=== PATIENT | female | born 1940 | race Caucasian/White ===

== ENCOUNTER 2017-05-29 10:00 | Inpatient (IN) | payer MEDICARE, OTHER ==
[~2017-05-29] VITALS: Ht 157.5 cm; Wt 96.3 kg
[2017-06-20] MEDS ORDERED: LACTATED RINGERS 1,000 ML IV SCH ×2 (06:09→06:30)
[2017-06-20 06:12] VITALS: BP 147/86
[2017-06-20] MEDS ORDERED: ASPI-496 PO (06:25)
[2017-06-20] MEDS ORDERED: CITA10TA4 PO (06:25)
[2017-06-20] MEDS ORDERED: AMLO2.5T PO (06:25)
[2017-06-20] MEDS ORDERED: RANI150T4 PO (06:25)
[2017-06-20] MEDS ORDERED: LEVO50TA5 PO (06:25)
[2017-06-20] MEDS ORDERED: MELO15TA24 PO (06:25)
[2017-06-20] MEDS ORDERED: HYDR-3240 PO (06:35)
[2017-06-20] MEDS ORDERED: EPINEPHRINE 1 MG/ML, 1ML ONE (06:44)
[2017-06-20] MEDS ORDERED: VANCOMYCIN 1,000 MG ONE (06:44)
[2017-06-20] MEDS ORDERED: BUPIVACAINE/PF 0.5% ONE (06:44)
[2017-06-20] MEDS ORDERED: BACITRACIN 50,000 UNIT ONE (06:44)
[2017-06-20] MEDS ORDERED: THROMBIN 5,000 UNIT VIAL TP ONE (06:44)
[2017-06-20] MEDS ORDERED: FENTANYL PF 100 MCG/2ML ONE ×2 (07:03→11:06)
[2017-06-20] MEDS ORDERED: MIDAZOLAM 1 MG/ML, 2ML ONE (07:03)
[2017-06-20] MEDS ORDERED: REMIFENTANIL 2 MG ONE ×2 (07:04→09:44)
[2017-06-20] MEDS ORDERED: KETAMINE 10 MG/ML, 20ML ONE (07:04)
[2017-06-20] MEDS ORDERED: ONDANSETRON 2MG/ML, 2ML IVPush PRN (08:00)
[2017-06-20] MEDS ORDERED: MEPERIDINE/PF 25MG/0.5ML IVPush PRN (08:00)
[2017-06-20] MEDS ORDERED: PROMETHAZINE 25 MG/ML, 1ML IV PRN (08:00)
[2017-06-20] MEDS ORDERED: hydrALAzine 20 MG/ML, 1ML IV PRN (08:00)
[2017-06-20] MEDS ORDERED: ACETAMINOPHEN 325 MG TABLET PO PRN (08:00)
[2017-06-20] MEDS ORDERED: OXYcodone 5 MG/5 ML ORAL.SOL UDC PO PRN (08:00)
[2017-06-20] MEDS ORDERED: HYDROmorphone 1 MG/ML, 1ML IV PRN (08:00)
[2017-06-20] MEDS ORDERED: LABETALOL 5MG/ML, 20ML IV PRN (08:00)
[2017-06-20] MEDS ORDERED: DEXAMETHASONE 4 MG/ML, 1ML ONE (08:26)
[2017-06-20] MEDS ORDERED: PROPOFOL 10 MG/ML, 50ML ONE (08:26)
[2017-06-20] MEDS ORDERED: CEFAZOLIN 1,000 MG ONE (08:26)
[2017-06-20] MEDS ORDERED: ONDANSETRON 2MG/ML, 2ML ONE (08:26)
[2017-06-20] MEDS ORDERED: ROCURONIUM 10 MG/ML ONE (08:26)
[2017-06-20] MEDS ORDERED: PHENYLEPHRINE 10 MG/ML ONE (08:26)
[2017-06-20] MEDS ORDERED: PROPOFOL 10 MG/ML, 20ML ONE (08:26)
[2017-06-20] MEDS ORDERED: BUPIVACAINE/PF 0.5% INFIL ONE (09:09)
[2017-06-20] MEDS ORDERED: EPINEPHRINE 1 MG/ML, 1ML INFIL ONE (09:10)
[2017-06-20] MEDS ORDERED: HYDROmorphone 1 MG/ML, 1ML ONE (10:31)
[2017-06-20] MEDS ORDERED: ACETAMINOPHEN 650 MG/20.3 ML UDC ONE (11:07)
[2017-06-20] MEDS ORDERED: OXYcodone 5 MG/5 ML ORAL.SOL UDC ONE (11:07)
[2017-06-20] MEDS: FENTANYL PF 100 MCG/2ML IV PRN ×2 (11:19→11:28)
[2017-06-20] MEDS ORDERED: HYDROmorphone PCA 30 MG/30 ML ONE (11:41)
[2017-06-20] MEDS ORDERED: HYDROmorphone PCA 30 MG/30 ML IV PRN (12:00)
[2017-06-20 12:33] VITALS: BP 128/68
[2017-06-20] MEDS ORDERED: DIPHENHYDRAMINE 25 MG CAPSULE PO PRN (13:30)
[2017-06-20] MEDS ORDERED: BISACODYL 10 MG SUPP PR PRN (13:30)
[2017-06-20] MEDS ORDERED: ONDANSETRON 2MG/ML, 2ML IV PRN (13:30)
[2017-06-20] MEDS: NS + 20MEQ KCL 1,000 ML IV SCH (13:30)
[2017-06-20] MEDS ORDERED: TIZANIDINE 4MG TABLET PO PRN (13:30)
[2017-06-20] MEDS ORDERED: MAGNESIUM HYDROXIDE 8%, 30ML UDC PO PRN (13:30)
[2017-06-20] MEDS ORDERED: HYDROcodone/APAP 5/325 TABLET PO PRN (13:30)
[2017-06-20] MEDS ORDERED: morphine SULFATE 10 MG/ML, 1ML IV PRN (13:30)
[2017-06-20] MEDS ORDERED: DIAZEPAM 5 MG/ML, 2ML IV PRN (13:30)
[2017-06-20] MEDS ORDERED: DIPHENHYDRAMINE 50 MG/ML, 1ML IVPush PRN (13:30)
[2017-06-20] MEDS ORDERED: DIAZEPAM 5 MG TABLET PO PRN (13:30)
[2017-06-20] MEDS: CEFAZOLIN PMX 1GM/50ML 50 ML IVPB SCH (16:45)
[2017-06-20 20:15] VITALS: BP 120/72
[2017-06-21 00:40] VITALS: BP 102/66
[2017-06-21] MEDS: CEFAZOLIN PMX 1GM/50ML 50 ML IVPB SCH (01:23)
[2017-06-21 03:37] VITALS: BP 102/62
[2017-06-21] MEDS: NS + 20MEQ KCL 1,000 ML IV SCH ×3 (03:43→21:48)
[2017-06-21 05:07] LABS: HEMATOCRIT 31.6 % (34.6-47.8); HEMOGLOBIN 10.6 g/dL (11.7-16.4); WHITE BLOOD COUNT 9.1 x10^3/uL (3.4-10)
[2017-06-21 05:17] LABS: BLOOD UREA NITROGEN 17 mg/dL (7-18)
[2017-06-21] MEDS: LEVOTHYROXINE 50 MCG TABLET PO SCH (06:37)
[2017-06-21 07:17] VITALS: BP 108/59
[2017-06-21] MEDS: AMLODIPINE 2.5 MG TABLET PO SCH (09:00)
[2017-06-21] MEDS: FAMOTIDINE 20 MG TABLET PO SCH (09:52)
[2017-06-21] MEDS: CITALOPRAM 10 MG TABLET PO SCH (09:52)
[2017-06-21] MEDS: SENNA/DOCUSATE TABLET PO SCH (09:52)
[2017-06-21] MEDS: OXYcodone/APAP 5/325MG TABLET PO PRN ×4 (11:34→22:59)
[2017-06-21 14:00] VITALS: BP 123/59
[2017-06-21 19:09] VITALS: BP 105/52
[2017-06-22 02:59] VITALS: BP 110/73
[2017-06-22] MEDS: OXYcodone/APAP 5/325MG TABLET PO PRN ×2 (05:02→09:00)
[2017-06-22 05:10] LABS: BLOOD UREA NITROGEN 19 mg/dL (7-18)
[2017-06-22] MEDS: LEVOTHYROXINE 50 MCG TABLET PO SCH (05:12)
[2017-06-22 05:44] LABS: HEMATOCRIT 29.6 % (34.6-47.8); WHITE BLOOD COUNT 6.1 x10^3/uL (3.4-10)
[2017-06-22 06:59] VITALS: BP 109/67
[2017-06-22] MEDS ORDERED: TIZA2TAB PO (08:12)
[2017-06-22] MEDS ORDERED: OXYC1TAB7 PO (08:12)
[2017-06-22] MEDS ORDERED: TIZANIDINE 4MG TABLET PO SCH (08:30)
[2017-06-22] MEDS: CITALOPRAM 10 MG TABLET PO SCH (09:01)
[2017-06-22] MEDS: AMLODIPINE 2.5 MG TABLET PO SCH (09:01)
[2017-06-22] MEDS: FAMOTIDINE 20 MG TABLET PO SCH (09:01)
[2017-06-22] MEDS: SENNA/DOCUSATE TABLET PO SCH (09:02)
[2017-06-22] MEDS ORDERED: METH750T2 PO (12:53)
== END 2017-06-22 13:00 | disposition home or self-care (01) | DRG 460 ==
LOC: ORIP 06-20 05:24 → 4NOR 06-20 12:20 → DCLOUNGE 06-22 12:45
PROVIDERS: ADMIT Neurological Surgery; ATTEND Neurological Surgery
PROC: 0SG00A1 (ICD-10-PCS; 2017-06-20)
PROC: 01NR0ZZ Release Sacral Nerve, Open Approach (ICD-10-PCS; 2017-06-20)
PROC: 0SB20ZZ Excision of Lumbar Vertebral Disc, Open Approach (ICD-10-PCS; principal; 2017-06-20 07:30)
DX: M48.06 Spinal stenosis, lumbar region (principal); I10 Essential (primary) hypertension; E07.9 Disorder of thyroid, unspecified; M43.16 Spondylolisthesis, lumbar region; F41.9 Anxiety disorder, unspecified; F32.9 Major depressive disorder, single episode, unspecified; Z90.710 Acquired absence of both cervix and uterus; Z82.49 Family history of ischemic heart disease and other diseases of the circulatory system
CPT/HCPCS: 36415; 72100; 80048; 85025; C1713; C1776; J0171; J0690; J1100; J1170; J2250; J2405; J2704; J3010; J3370; J3480; J3490; J2370; J7120